=== PATIENT | female | born 1950 | race Caucasian/White ===

== ENCOUNTER 2016-07-16 20:20 | Emergency (ER) | payer MEDICARE ==
[~2016-07-16] VITALS: Ht 165.1 cm; Wt 63.5 kg
[2016-07-16 20:56] LABS: BASO # 0.1 x10^3/uL (0.0-0.2); BASO % 1 % (0-3); EOS % 2 % (0-3); HEMATOCRIT 33.3 % (36.0-47.0); HEMOGLOBIN 10.5 g/dL (12.0-15.5); LYMPH % 13 % (24-48); MEAN CORPUSCULAR HEMOGLOBIN 28 pg (25-35); MEAN CORPUSCULAR HGB CONC 32 g/dL (31-37); MEAN CORPUSCULAR VOLUME 88 fL (79-100); MONO % 4 % (0-9); NEUT % 80 % (31-73); PLATELET COUNT 301 x10^3/uL (140-400); RED BLOOD COUNT 3.78 x10^6/uL (3.50-5.40); RED CELL DISTRIBUTION WIDTH 15.3 % (11.5-14.5)
[2016-07-16 21:12] LABS: CALCIUM 9.6 mg/dL (8.5-10.1); CREATININE 1.9 mg/dL (0.6-1.0); GFR 26.6; POTASSIUM 3.2 mmol/L (3.5-5.1)
[2016-07-16 21:18] LABS: ALBUMIN 3.7 g/dL (3.4-5.0); ALBUMIN/GLOBULIN RATIO 0.9 (1.0-1.7); TOTAL BILIRUBIN 0.3 mg/dL (0.2-1.0); TOTAL PROTEIN 7.7 g/dL (6.4-8.2)
--- NOTE | 2016-07-16 21:31 | EKG ---
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
--- NOTE | 2016-07-16 21:39 | RAD ---
PROCEDURE CT head and CT cervical spine without contrast dated 07/16/2016. HISTORY Head and neck pain after fall. TECHNIQUE Contiguous axial imaging of the head was performed from skull base to vertex. No contrast administered. In addition, axial imaging of the cervical spine acquired with thin cut coronal and sagittal reconstructions.Exposure: One or more of the following individualized dose reduction techniques were utilized for this exam: 1. Automated exposure control. 2. Adjustment of the mA and/or kV according to patient size. 3. Use of iterative reconstruction technique. COMPARISON None. FINDINGS Ventricles and sulci are mildly prominent for age. No midline shift or mass effect. Mild patchy low density in the deep/subcortical periventricular white matter are small remote lacunar infarct of the left basal ganglia. No hemorrhage or extra-axial collection. Posterior fossa and brainstem unremarkable. Visualized paranasal sinuses and mastoid air cells are clear. No acute calvarial abnormality. Images of the cervical spine were acquired skull base to T1. Sagittal alignment is anatomic. Vertebral body heights are maintained. No prevertebral soft tissue swelling. Posterior elements are intact. Mild hypertrophic change of the superior and inferior endplates throughout. Multilevel uncovertebral spur wall ring. Moderate to severe disc space narrowing at C4-C5, C5-C6 and C6-C7. Hypertrophic changes of the facet joints throughout. There is resultant moderate to right foraminal stenosis at C5-C6 and C6-C7 no significant central canal or left foraminal compromise. Visualized soft tissue structures are unremarkable. Limited images of the lung apices are clear. IMPRESSION HEAD - No evidence of acute intracranial hemorrhage or mass. - Mild chronic small vessel ischemic changes and atrophy. IMPRESSION CERVICAL SPINE: - No evidence of fracture or malalignment. - Mild multilevel spondylosis. Electronically signed by: Silvio Gill (Jul 16, 2016 21:38:10)
[2016-07-16 22:58] LABS: BILIRUBIN,URINE SMALL (NEG); GLUCOSE,URINE NEGATIVE (NEG); NITRITE,URINE NEGATIVE (NEG); PH,URINE 5.5; PROTEIN,URINE NEGATIVE (NEG-TRACE)
[2016-07-16 23:05] LABS: BACTERIA,URINE MANY /HPF (0-FEW); RBC,URINE 0 /HPF (0-2); SQUAMOUS EPITHELIAL CELL,UR MANY /LPF
[2016-07-16 23:18] VITALS: BP 110/56
--- NOTE | 2016-07-17 02:50 | ED.ADGEN ---
Past Medical History Past Medical History: Fibromyalgia, Other Additional Past Medical Histor: CHRONIC PAIN,CHRONIC FATIGUE, Past Surgical History: Appendectomy, Cholecystectomy, , Hysterectomy Alcohol Use: None Drug Use: None Adult General Chief Complaint Chief Complaint: SYNCOPE HPI HPI Patient is a 65 year old woman, history of fibromyalgia, who presents emergency Department after a syncopal episode. Patient states that yesterday she noted that there were "worms in my mouth and gums", that she noted when she stood in front of the near in the bathroom, and she states "I was so horrified that I passed out and fell down and hit my head". Patient is noted to have ecchymosis on both sides of her head, and also ecchymosis on her left shoulder, states that she has been ambulating and active at home without issue since that time. She brought a sample of stool with her which she states is full of worms, states that she has "fleas at home and this is the larva". Patient is a and O 4 , and denies any other complaints at this time, aside from the shoulder pain, and mild headache. 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 Denies any chest pain or shortness of breath, any weakness numbness or tingling. She states that she was experiencing some flulike symptoms over the past several days, but has been not experiencing any fever, nausea or vomiting for the past 48 hours. Before that was having multiple episodes of loose brown stool. Patient has a sample of what she describes a stool in a total bottle she brought from home, noted to have white, thin material in a yellow mucus. This was sent for analysis with stool ova and parasite. Review of Systems Review of Systems Constitutional: Denies fever or chills. [] Eyes: Denies change in visual acuity. [] HENT: Denies nasal congestion or sore throat. [] Respiratory: Denies cough or shortness of breath. [] Cardiovascular: Denies chest pain or edema. [] GI: Denies abdominal pain, nausea, vomiting, diarrhea, resolved 48 hours ago. : Denies dysuria. [] Musculoskeletal: Denies back pain or joint pain. [] Integument: Denies rash. [] Neurologic: Denies headache, focal weakness or sensory changes. [Syncope times one episode yesterday.] Endocrine: Denies polyuria or polydipsia. [] Lymphatic: Denies swollen glands. [] Psychiatric: Denies depression or anxiety. [] Allergies Allergies Allergies Coded Allergies Type Severity Reaction Last Updated Verified Penicillins Allergy Intermediate 07/16/16 Yes adhesive tape Allergy Intermediate 07/16/16 Yes bacitracin Allergy Intermediate 07/16/16 Yes fluoxetine Allergy Intermediate 07/16/16 Yes morphine Allergy Intermediate 07/16/16 Yes neomycin Allergy Intermediate 07/16/16 Yes polymyxin B Allergy Intermediate 07/16/16 Yes venom-honey bee Allergy Intermediate 07/16/16 Yes Physical Exam Physical Exam Constitutional: Well developed, well nourished, no acute distress, non-toxic appearance. [] HENT: Normocephalic, ecchymosis with small hematoma noted on the temporal region on the left side of the patient's head, bilateral external ears normal, oropharynx moist, no oral exudates, nose normal. No hemotympanum, no septal hematoma. [] Eyes: PERRLA, EOMI, conjunctiva normal, no discharge. [] Neck: C-collar in place due to complaint of diffuse pain throughout the neck, although the patient states that she is chronic pain in the region, there are no step-offs or deformities,, no tenderness, supple, no stridor. [] Cardiovascular:Heart rate regular rhythm, no murmur , S1, S2, rubs or gallops. [ ] Lungs & Thorax: Bilateral breath sounds clear to auscultation , no wheezing, rhonchi, rales. No chest tenderness or crepitus. Patient with small abrasion noted along the right distal clavicle and shoulder region, [no hematoma, full range of motion.] Abdomen: Bowel sounds normal, soft, no tenderness, no masses, no pulsatile masses. [] Skin: Warm, dry, no erythema, no rash. [] Back: No tenderness, no CVA tenderness. [] Extremities: Mild initial patient in the left shoulder, full range of motion, with abrasion as stated, no cyanosis, no clubbing, ROM intact, no edema. [] Neurologic: Alert and oriented X 3, normal motor function, normal sensory function, no focal deficits noted. [] Psychologic: Affect normal, judgement normal, mood normal. [] Current Patient Data Vital Signs Vital Signs Date Time Temp Pulse Resp B/P Pulse Ox O2 Delivery O2 Flow Rate FiO2 07/16/16 23:18 68 13 110/56 95 Room Air 07/16/16 20:22 98.1 98.1 Lab Values Laboratory Tests Test 07/16/16 20:35 07/16/16 22:50 White Blood Count 15.0x10^3/uL (4.0-11.0) H Red Blood Count 3.78x10^6/uL (3.50-5.40) Hemoglobin 10.5g/dL (12.0-15.5) L Hematocrit 33.3% (36.0-47.0) L Mean Corpuscular Volume 88fL (79-100) Mean Corpuscular Hemoglobin 28pg (25-35) Mean Corpuscular Hemoglobin Concent 32g/dL (31-37) Red Cell Distribution Width 15.3% (11.5-14.5) H Platelet Count 301x10^3/uL (140-400) Neutrophils (%) (Auto) 80% (31-73) H Lymphocytes (%) (Auto) 13% (24-48) L Monocytes (%) (Auto) 4% (0-9) Eosinophils (%) (Auto) 2% (0-3) Basophils (%) (Auto) 1% (0-3) Neutrophils # (Auto) 12.1x10^3uL (1.8-7.7) H Lymphocytes # (Auto) 2.0x10^3/uL (1.0-4.8) Monocytes # (Auto) 0.6x10^3/uL (0.0-1.1) Eosinophils # (Auto) 0.2x10^3/uL (0.0-0.7) Basophils # (Auto) 0.1x10^3/uL (0.0-0.2) Sodium Level 140mmol/L (136-145) Potassium Level 3.2mmol/L (3.5-5.1) L Chloride Level 106mmol/L (98-107) Carbon Dioxide Level 23mmol/L (21-32) Anion Gap 11 (6-14) Blood Urea Nitrogen 32mg/dL (7-20) H Creatinine 1.9mg/dL (0.6-1.0) H Estimated GFR (Cockcroft-Gault) 26.6 BUN/Creatinine Ratio 17 (6-20) Glucose Level 79mg/dL (70-99) Calcium Level 9.6mg/dL (8.5-10.1) Total Bilirubin 0.3mg/dL (0.2-1.0) Aspartate Amino Transferase (AST) 21U/L (15-37) Alanine Aminotransferase (ALT) 20U/L (14-59) Alkaline Phosphatase 102U/L (46-116) Troponin I Quantitative < 0.017ng/mL (0.000-0.055) DY-Afs-A-Type Natriuretic Peptide 56pg/mL (0-124) Total Protein 7.7g/dL (6.4-8.2) Albumin 3.7g/dL (3.4-5.0) Albumin/Globulin Ratio 0.9 (1.0-1.7) L Urine Collection Type Unknown Urine Color Latisha Urine Clarity Turbid Urine pH 5.5 Urine Specific [place] 1.020 Urine Protein Negativemg/dL (NEG-TRACE) Urine Glucose (UA) Negativemg/dL (NEG) Urine Ketones (Stick) Tracemg/dL (NEG) Urine Blood Negative (NEG) Urine Nitrite Negative (NEG) Urine Bilirubin Small (NEG) Urine Urobilinogen Dipstick 1.0mg/dL (0.2 mg/dL) Urine Leukocyte Esterase Small (NEG) Urine RBC 0/HPF (0-2) Urine WBC 1-4/HPF (0-4) Urine Squamous Epithelial Cells Many/LPF Urine Bacteria Many/HPF (0-FEW) Urine Hyaline Casts Few/HPF Urine Mucus Mod/LPF Laboratory Tests 07/16/16 20:35 Laboratory Tests 07/16/16 20:35 EKG EKG EC: Sinus rhythm, heart rate 78 bpm, upright axis, QTC of 432, QRS of 106 , contour abnormalities noted in the inferior leads, T-wave inversions noted in lead 3, and flattening in aVF, no ST elevations or depressions, mild baseline artifact noted. Abnormal ECG, does not meet STEMI criteria. As interpreted by me. Radiology/Procedures Radiology/Procedures Chest x-ray: One view: Normal cardiopulmonary silhouette, no focal traits, no effusions, no soft tissue or bone abdomen abnormalities identified. As interpreted by me. [] Course & Med Decision Making Course & Med Decision Making Pertinent Labs and Imaging studies reviewed. (See chart for details) Injury occurred more than 30 hours ago. Patient is awake, alert, oriented 4, and complaining of "worms in my stool and in my mouth". States that she has pulled worms out of her nose and her ears before as well, patient's family is present with her bedside, they state the patient has "fleas from the dog had been infesting the house". I did send the sample the patient brought with her to the laboratory for analysis with ova and parasite. Rectal examination in the ED, which showed brown stool, with no evidence of worms or other abnormal findings. Patient received CT of the head and neck due to her complaint of syncope with fall and pain, she does take a daily aspirin. CT of the head and neck are unremarkable, c-collar was cleared without issue in the ED. Other laboratory studies revealed mild dehydration, with mild renal sufficiency with a creatinine of 1.9. I did discuss the signs with palpation. She is requesting "medication to treat the worms". I did discuss with her that I did not have indications for giving any medications at this time, as she has no recent travel or exposure history that would be concerning, and the history and examination that she has presented is not consistent with flea infestation. She does not have any evidence of excoriations bite crisostomo or itching of the skin. Patient states that she does not want to be further evaluated or admitted to the hospital, that her syncopal episode was brought on by the "horror" of seeing the worms in her mouth. She states that she would prefer to follow-up with her primary care provider, who "will believe what I'm saying and will give me medication for the worms". She ambulated in the ED without issue, she states that she does use her cane as needed, and has her cane and other medications at home. Patient's family as stated is with her bedside, are agreeable with plan for discharge home, will be with the patient at home, and will return if any concerning symptoms develop. Patient discharged home with her family, with plan to follow-up with her primary care provider, who will be sent to the results of the stool ova and parasite, and to return to the ED for concerning symptoms as discussed. Dragon Disclaimer Dragon Disclaimer This electronic medical record was generated, in whole or in part, using a voice recognition dictation system. Departure Impression: Primary Impression: Syncope Additional Impression: Closed head injury Disposition: 01 HOME, SELF-CARE Condition: STABLE Problem Qualifiers Primary Impression: Syncope Syncope type: unspecified Qualified Code: R55 - Syncope and collapse Additional Impression: Closed head injury Encounter type: initial encounter Qualified Code: S09.90XA - Unspecified injury of head, initial encounter RENE RAMIREZ DO Jul 17, 2016 02:50
--- NOTE | 2016-07-17 08:01 | RAD ---
Indication fall, pain. Internally and externally rotated views of the left shoulder as well as a Y view were obtained. No bony abnormality is seen
--- NOTE | 2016-07-17 08:10 | RAD ---
Indication fall, pain. AP and lateral views of the thoracic spine were obtained as well as a swimmer's view. There is mild scoliosis. Vertebral height and disc spaces are unremarkable. An acute finding is not seen. IMPRESSION: No acute finding seen in the thoracic spine
--- NOTE | 2016-07-17 08:12 | RAD ---
Indication syncopal episode. A single view of the chest was obtained. No prior imaging of the chest is available. The heart and pulmonary vessels appear normal. The mediastinum has a normal appearance. The lungs are clear. Visualized bony structures appear grossly intact. IMPRESSION: No acute or focal process seen in the chest
[2016-07-17 12:04] LABS: NEG OBC FOB NEG; POS OBC FOB POS
[2016-07-21 13:22] LABS: CRYPTOSPORIDIUM EIA Negative (Negative)
== END 2016-07-16 23:50 | disposition home or self-care (01) ==
LOC: ER 20:20
DX: R55 Syncope and collapse (principal); S00.83XA Contusion of other part of head, initial encounter; S40.012A Contusion of left shoulder, initial encounter; M54.2 Cervicalgia; G89.29 Other chronic pain; M79.7 Fibromyalgia; R53.82 Chronic fatigue, unspecified; Z88.0 Allergy status to penicillin; Z88.8 Allergy status to other drugs, medicaments and biological substances; Z88.1 Allergy status to other antibiotic agents; Z88.6 Allergy status to analgesic agent; Z91.030 Bee allergy status; W18.09XA Striking against other object with subsequent fall, initial encounter; Y93.89 Activity, other specified; Y99.8 Other external cause status; Y92.89 Other specified places as the place of occurrence of the external cause
CPT/HCPCS: 36415; 70450; 71010; 72072; 72125; 73030; 80053; 81001; 82274; 83880; 84484; 85027; 87086; 87328; 93005; 99285-25

== ENCOUNTER 2017-07-30 20:43 | Emergency (ER) | payer MEDICARE | END 2017-07-30 23:56 | disposition home or self-care (01) | LOC: ER 20:43 | DX: S01.81XA Laceration without foreign body of other part of head, initial encounter (principal); S00.11XA Contusion of right eyelid and periocular area, initial encounter; Z86.73 Personal history of transient ischemic attack (TIA), and cerebral infarction without residual deficits; M79.7 Fibromyalgia; G89.29 Other chronic pain; G43.909 Migraine, unspecified, not intractable, without status migrainosus; Y92.89 Other specified places as the place of occurrence of the external cause; Z88.0 Allergy status to penicillin; Z88.1 Allergy status to other antibiotic agents; Z88.5 Allergy status to narcotic agent; Z88.8 Allergy status to other drugs, medicaments and biological substances; Z91.030 Bee allergy status; W01.0XXA Fall on same level from slipping, tripping and stumbling without subsequent striking against object, initial encounter; Y93.89 Activity, other specified; Y99.8 Other external cause status | CPT/HCPCS: 70450; 70486; 99284-25 ==